=== PATIENT | male | born 1955 | race Caucasian/White ===

== ENCOUNTER 2016-09-06 23:51 | Emergency (ER) | payer BC, OTHER ==
[~2016-09-06] VITALS: Ht 188 cm; Wt 95.3 kg
[2016-09-07] MEDS ORDERED: fentaNYL INJECTION 100 MCG/2 ML AMP IVP STA ×3 (00:15→01:52)
[2016-09-07] MEDS ORDERED: LACTATED RINGERS 1,000 ML IV ONE (00:15)
[2016-09-07] MEDS ORDERED: ONDANSETRON 4 MG/2 ML (SDV) Z0FRAN IVP ONE (00:15)
--- NOTE | 2016-09-07 00:21 | ED Abdominal Pain ---
General Chief Complaint: Abdominal/GI Problems Stated Complaint: ABD PAIN,SUZANNE CA METS TO LIVER Source of Information: Patient, Spouse History of Present Illness Time Seen By Provider: 00:05 Initial Comments PT ARRIVES VIA POV FROM HOME C/O SEVERE GENERALIZED ABDOMINAL PAIN SINCE 2029 TONIGHT--PAIN BEGAN 10 MINUTES AFTER EATING SAUSAGE AND SAUERKRAUT PAIN BEGAN IN UPPER ABDOMEN AND NOW IS ALL OVER C/O NAUSEA AND VOMITED X 1-HAS ONLY HAD A SIP OF WATER SINCE PAIN BEGAN HAS NOT PASSED ANY GAS SINCE PAIN BEGAN HAD NORMAL BM THIS AM NO URINARY SYMPTOMS NO FEVER NO HISTORY OF SIMILAR PT HAS METASTATIC COLON CANCER WITH LIVER METS. DX 01/2015 BEING TREATED WITH CHEMO-GOES TO [facility] AND DR. HAYES AT [facility] LAST CHEMO 07/19/16, NEXT TX DUE 09/08/16 NO ABDOMINAL SURGERY OF ANY KIND NO RADIATION NO PCP NO CARDIOLOGY ONCOLOGY: DR. HAYES, [facility]. ALSO GOES TO [facility] Allergies and Home Medications Allergies Coded Allergies: No Known Drug Allergies (Unverified , 09/07/16) Home Medications Furosemide 20 Mg Tablet, 20 MG PO, (Reported) Spironolactone 50 Mg Tablet, 50 MG PO, (Reported) Review of Systems Constitutional: no symptoms reported Respiratory: No Symptoms Reported Cardiovascular: No Symptoms Reported Gastrointestinal: See HPI, Abdominal Pain, Nausea, Poor Appetite, Poor Fluid Intake, Vomiting Genitourinary: No Symptoms Reported Musculoskeletal: no symptoms reported Skin: no symptoms reported Psychiatric/Neurological: No Symptoms Reported Endocrine: No Symptoms Reported Hematologic/Lymphatic: No Symptoms Reported Past Wydpfkh-Qgwihy-Bnkhww Hx Patient Social History Alcohol Use: Past History Recreational Drug Use: No Smoking Status: Never a Smoker Recent Foreign Travel: No Contact w/Someone Who Travel: No Surgeries HX Surgeries: Yes (PORT RIGHT CHEST; ENDOVASCULAR COIL IN LIVER RELATED TO CANCER TX--COIL EMBOLIZATION; COLONOSCOPIES; LEFT ARM FX/ORIF) Surgeries: Orthopedic Respiratory Hx Respiratory Disorders: No Cardiovascular Hx Cardiac Disorders: Yes (HAS CHRONIC ATRIAL FIBRILLATION--NOT TREATED, 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 ) Cardiac Disorders: Atrial Fibrillation Neurological Hx Neurological Disorders: No Genitourinary Hx Genitourinary Disorders: No Gastrointestinal Hx Gastrointestinal Disorders: Yes (COLON CANCER WITH LIVER METS) Musculoskeletal Hx Musculoskeletal Disorders: Yes (LEFT ARM FX/ ORIF) Musculoskeletal Disorders: Fractures Endocrine Hx Endocrine Disorders: No HEENT HX ENT Disorders: No Cancer Hx Cancer: Yes (COLON CANCER WITH LIVER METS DX 01/2015--TREATED WITH CHEMO ONLY. ) Cancer: Colon Psychosocial Hx Psychiatric Problems: No Integumentary HX Skin/Integumentary Disorder: No Blood Transfusions Hx Blood Disorders: No Physical Exam Vital Signs VS - Last 72 Hours, by Label 09/07/16 09/07/16 00:13 05:17 Temp 96.8 Pulse 129 102 Resp 16 16 B/P (MAP) 136/117 Pulse Ox 98 97 O2 Delivery Room Air Room Air Capillary Refill : General Appearance: WD/WN, other (MOANING. KEEPS EYES CLOSED) HEENT: PERRL/EOMI Neck: normal inspection Respiratory: normal breath sounds, no respiratory distress, no accessory muscle use Cardiovascular: no edema, no JVD, no murmur, tachycardia, irregularly irregular Gastrointestinal: abnormal bowel sounds (ABSENT), distended (SLIGHTLY), guarding, rebound, tenderness (SEVERE, DIFFUSE TENDERNESS), No hernia, other ( UNABLE TO DETERMINE IF ORGANOMEGALY IS PRESENT DUE TO PT DISCOMFORT ON PALPATION ) Extremities: normal inspection, no pedal edema, no calf tenderness, normal capillary refill Back: no CVA tenderness Neurologic/Psychiatric: imaging analyst II-XII nml as tested, no motor/sensory deficits, alert, oriented x 3 Skin: warm/dry, other (SALLOW) Progress/Results/Core Measures Results/Orders Lab Results Laboratory Tests Test 09/07/16 00:20 Range/Units White Blood Count 11.4 H 4.3-11.0 10^3/uL Red Blood Count 3.68 L 4.35-5.85 10^6/uL Hemoglobin 12.7 L 13.3-17.7 G/DL Hematocrit 36 L 40-54 % Mean Corpuscular Volume 97 80-99 FL Mean Corpuscular Hemoglobin 35 H 25-34 PG Mean Corpuscular Hemoglobin Concent 36 32-36 G/DL Red Cell Distribution Width 13.7 10.0-14.5 % Platelet Count 180 130-400 10^3/uL Mean Platelet Volume 10.4 7.4-10.4 FL Neutrophils (%) (Auto) 83 H 42-75 % Lymphocytes (%) (Auto) 6 L 12-44 % Monocytes (%) (Auto) 11 0-12 % Eosinophils (%) (Auto) 0 0-10 % Basophils (%) (Auto) 1 0-10 % Neutrophils # (Auto) 9.5 H 1.8-7.8 X 10^3 Lymphocytes # (Auto) 0.6 L 1.0-4.0 X 10^3 Monocytes # (Auto) 1.2 H 0.0-1.0 X 10^3 Eosinophils # (Auto) 0.0 0.0-0.3 10^3/uL Basophils # (Auto) 0.1 0.0-0.1 10^3/uL Sodium Level 135 135-145 MMOL/L Potassium Level 4.1 3.6-5.0 MMOL/L Chloride Level 101 98-107 MMOL/L Carbon Dioxide Level 21 21-32 MMOL/L Anion Gap 13 5-14 MMOL/L Blood Urea Nitrogen 12 7-18 MG/DL Creatinine 0.81 0.60-1.30 MG/DL Estimat Glomerular Filtration Rate > 60 BUN/Creatinine Ratio 15 Glucose Level 137 H 70-105 MG/DL Calcium Level 8.6 8.5-10.1 MG/DL Total Bilirubin 3.5 H 0.1-1.0 MG/DL Aspartate Amino Transf (AST/SGOT) 65 H 5-34 U/L Alanine Aminotransferase (ALT/SGPT) 39 0-55 U/L Alkaline Phosphatase 212 H 40-136 U/L Total Protein 6.9 6.4-8.2 GM/DL Albumin 2.5 L 3.2-4.5 GM/DL Amylase Level 49 25-125 U/L Lipase 36 8-78 U/L My Orders Orders - AGUSTINA MCMAHON DO Saline Lock/Iv-Start (09/07/16 00:06) Amylase (09/07/16 00:06) Cbc With Automated Diff (09/07/16 00:06) Comprehensive Metabolic Panel (09/07/16 00:06) Lipase (09/07/16 00:06) Acute Abd Series (09/07/16 00:06) Ondansetron Injection (Zofran Injectio (09/07/16 00:15) Fentanyl Injection (Sublimaze Injection (09/07/16 00:15) Saline Lock/Iv-Start (09/07/16 00:15) Lactated Ringers (Lr 1000 Ml Iv Solution (09/07/16 00:15) Fentanyl Injection (Sublimaze Injection (09/07/16 00:45) Ct Abdomen/Pelvis W (09/07/16 00:52) Iohexol Injection (Omnipaque 350 Mg/Ml 1 (09/07/16 01:00) Ns (Ivpb) (Sodium Chloride 0.9% Ivpb Bag (09/07/16 01:00) Ct Chest Wo (09/07/16 01:51) Fentanyl Injection (Sublimaze Injection (09/07/16 01:52) Medications Given in ED Vital Signs/I&O Vital Sign - Last 12Hours 09/07/16 09/07/16 00:13 05:17 Temp 96.8 Pulse 129 102 Resp 16 16 B/P (MAP) 136/117 Pulse Ox 98 97 O2 Delivery Room Air Room Air Progress Note : Progress Note SYMPTOMS IMPROVED WITH MEDICATIONS NO DETERIORATION IN PT'S CONDITION DURING ER STAY Diagnostic Imaging Comments CT CHEST--MODERATE LEFT AND SMALL RIGHT PLEURAL EFFUSIONS, MULTIPLE MEDIASTINAL LYMPH NODES, DIFFUSE SUB Q EDEMA, OTHER NON-ACUTE FINDINGS CT ABDOMEN/PELVIS--ENLARGED RETROCECAL APPENDIX AT 8.2 MM WITH TINY APPENDICOLITH, AND THICKENED WALL. CANNOT EXCLUDE APPENDICITIS, LIMITED EXAM DUE TO ASCITES. NO FREE AIR, BOWEL OBSTRUCTION, HYDROURETER/NEPHROSIS OR BILIARY DUCTAL DILATATION. BILATERAL PLEURAL EFFUSIONS, MULTIFOCAL HEPATIC LESIONS C/W COLON CANCER METASTASIS BUT CANNOT R/O COEXISTENT HEPATOCELLULAR CARCINOMA. OTHER NON-ACUTE FINDINGS --PER [facility] VIA FAX @ [phone] Reviewed: Reviewed by Me Departure Communication Progress Notes OFFERED TO ADMIT PT HERE, BUT WANTS TO GO TO [place], THIS IS WHERE HIS ONCOLOGIST IS [phone]--CALLED [facility] ONE CALL. [phone]--SPOKE WITH DR. POPE, SURGEON VAT WASHER. STATES HE CANNOT ACCEPT THE PT HE IS CURRENTLY TAKING CARE OF A TRAUMA PT AND ADVISES TO TRANSFER TO [place]. PT IS AGREEABLE TO THIS. [phone]--CALLED [facility] DIRECT CALL. LEFT MESSAGE ON MACHINE [phone]--[facility] CALL CALLED BACK. PAGING SURGEON VAT WASHER [phone]--SPOKE WITH DR. SKELTON, ACCEPTS PT FOR ADMIT Impression Impression: Primary Impression: Metastatic colon cancer to liver Additional Impressions: Ascites POSSIBLE APPENDICITIS Malignant pleural effusion CHRONIC ATRIAL FIBRILLATION, UNTREATED Disposition: XFER SHT-TRM HOSP Condition: Improved Departure-Patient Inst. Referrals: NO,LOCAL PHYSICIAN (PCP) Primary Care Physician AGUSTINA MCMAHON DO Sep 07, 2016 00:21
[2016-09-07 00:30] LABS: BASOPHILS # (AUTO) 0.1 10^3/uL (0.0-0.1); BASOPHILS % (AUTO) 1 % (0-10); EOSINOPHILS % (AUTO) 0 % (0-10); LYMPHOCYTES # (AUTO) 0.6 X 10^3 (1.0-4.0); LYMPHOCYTES % (AUTO) 6 % (12-44); MEAN CORPUSCULAR HEMOGLOBIN 35 PG (25-34); MEAN CORPUSCULAR HGB CONC 36 G/DL (32-36); MEAN CORPUSCULAR VOLUME 97 FL (80-99); MEAN PLATELET VOLUME 10.4 FL (7.4-10.4); MONOCYTES # (AUTO) 1.2 X 10^3 (0.0-1.0); MONOCYTES % (AUTO) 11 % (0-12); NEUTROPHILS # (AUTO) 9.5 X 10^3 (1.8-7.8); NEUTROPHILS % (AUTO) 83 % (42-75); PLATELET COUNT 180 10^3/uL (130-400); RED BLOOD COUNT 3.68 10^6/uL (4.35-5.85); RED CELL DISTRIBUTION WIDTH 13.7 % (10.0-14.5); WHITE BLOOD COUNT 11.4 10^3/uL (4.3-11.0)
[2016-09-07 00:49] LABS: ALANINE AMINOTRANSFERASE 39 U/L (0-55); ALBUMIN 2.5 GM/DL (3.2-4.5); AMYLASE 49 U/L (25-125); ANION GAP 13 MMOL/L (5-14); ASPARTATE AMINO TRANSFERASE 65 U/L (5-34); BILIRUBIN,TOTAL 3.5 MG/DL (0.1-1.0); BLOOD UREA NITROGEN 12 MG/DL (7-18); BUN/CREATININE RATIO 15; CALCIUM 8.6 MG/DL (8.5-10.1); CARBON DIOXIDE 21 MMOL/L (21-32); CHLORIDE 101 MMOL/L (98-107); CREATININE SERUM 0.81 MG/DL (0.60-1.30); GFR ESTIMATED > 60; GLUCOSE 137 MG/DL (70-105); LIPASE 36 U/L (8-78); POTASSIUM 4.1 MMOL/L (3.6-5.0); SODIUM 135 MMOL/L (135-145); TOTAL PROTEIN 6.9 GM/DL (6.4-8.2)
[2016-09-07] MEDS ORDERED: IOHEXOL 350 MG/ML 100 ML (OMNIPAQUE 350) VIAL IV ONE (01:00)
[2016-09-07] MEDS ORDERED: NS 100 ML (IVPB) BAG IV ONE (01:00)
[2016-09-07] MEDS ORDERED: FURO-125 PO (04:18)
[2016-09-07] MEDS ORDERED: SPIR50TA2 PO (04:18)
[2016-09-07 05:17] VITALS: BP 131/100
--- NOTE | 2016-09-07 08:30 | Diagnostic Imaging Report ---
PROCEDURE: CT chest without contrast. TECHNIQUE: Multiple contiguous axial images were obtained through the chest without the use of intravenous contrast. INDICATION: Abdominal pain starting 3 hours earlier. History of colon cancer with metastatic disease. Nausea and vomiting. CORRELATION STUDY: None FINDINGS: Evaluation limited given lack of contrast. There is presence of a moderate left and small right pleural effusion. Associated areas of atelectasis noted more likely than consolidation. Heart size unremarkable. Trace pericardial effusion. There are multiple calcified and noncalcified mediastinal as well as hilar lymph nodes present. Thoracic aortic contour does demonstrate slight ectasia of the ascending aorta at 4.6 cm. A right-sided central line is present tip in the cavoatrial junction. Diffuse subcutaneous edema present. Increased density in the retroareolar regions compatible with gynecomastia. IMPRESSION: 1. Nonspecific sclerotic lesions are noted in the proximal humerus bilaterally may reflect bone islands. Moderate left and small right pleural effusion with bibasilar atelectasis more likely than consolidation. However, pneumonia is not excluded. 2. Multiple small calcified and noncalcified mediastinal as well as hilar lymph nodes. Nonspecific. 3. Diffuse subcutaneous edema present. A preliminary report was provided by [facility]. Dictated by: Dictated on workstation # [id number]
--- NOTE | 2016-09-07 08:40 | Diagnostic Imaging Report ---
INDICATION: Abdominal pain starting 3 hours prior. Nausea and vomiting. History of colon cancer with metastatic disease to the liver. TECHNIQUE: Single view chest with supine and upright radiographs of the abdomen. CORRELATION STUDY: None FINDINGS: Imaging of the chest demonstrate right IJ [id number] catheter to be present. There is a small right and moderate left pleural effusion likely associated with atelectasis lung bases. Heart size borderline. Vasculature within normal limits. Apparent embolization coils in the upper abdomen likely at the region of the gastroduodenal artery. There are a few gas filled loops of bowel present with air-fluid levels. May reflect mild ileus pattern. High degree obstruction does not appear to be present. Gas and stool within the colon to level of rectum suggested. Increased density of the abdomen could be reflective of underlying ascites. IMPRESSION: 1. Bilateral pleural effusions left greater than right with likely associated atelectasis of the lung bases. 2. Scattered gas filled loops of bowel are present may be reflective of underlying ileus pattern. No evidence for high degree obstruction. Underlying ascites not excluded. Dictated by: Dictated on workstation # [id number]
--- NOTE | 2016-09-07 08:51 | Diagnostic Imaging Report ---
PROCEDURE: CT abdomen and pelvis with contrast. TECHNIQUE: Multiple contiguous axial images were obtained through the abdomen and pelvis after administration of intravenous contrast. INDICATION: Abdominal pain starting 3 hours prior. Nausea and vomiting. History of colon cancer with metastatic disease. CORRELATION STUDY: None FINDINGS: There is presence of a moderate left and smaller right pleural effusion likely associated with bibasilar atelectasis versus perhaps consolidation. Increased density in the retroareolar region compatible with gynecomastia. Embolization coils in the right upper quadrant. Liver is small, heterogeneous and nodular. There are multifocal hypoenhancing hepatic lesions which is nonspecific but given history are concerning for neoplasm either perhaps primary hepatocellular given cirrhosis versus metastatic disease given the colon malignancy. Gallbladder absent with clips in the fossa. Spleen, pancreas and adrenal glands are unremarkable. Abdominal aorta normal in contour. Kidneys with relatively normal enhancement. Splenic vein with normal appearance. There is presence of a fairly significant amount of abdominal and pelvic ascites. The fluid does limit assessment of the gastrointestinal tract. Possibility of wall thickening not excluded. In the setting of portal hypertension bowel wall thickening may reflect edema with enterocolitis not excluded. A retrocecal appendix measures 8 mm with tiny appendicolith and thickened wall. Additional prominence of the appendix may be owing to the edema of the gastrointestinal tract. Uncomplicated appendicitis should be considered somewhat less likely but difficult to exclude by CT findings. No significant free air. No findings to suggest high degree bowel obstruction. Urinary bladder unremarkable. Prostate gland unremarkable. Large amount of fluid extends through the right inguinal canal into the scrotum. IMPRESSION: 1. Moderate left and small right pleural effusion. 2. Findings are consistent with cirrhosis. Multiple hepatic lesions are present worrisome for neoplasm perhaps primary hepatocellular versus metastatic. 3. Sizable amount of abdominal and pelvic ascites with some fluid extending into the right aspect of the scrotum. 4. There is some wall thickening present including of the appendix. This may be reflective of a edema from the portal hypertension and ascites. Enterocolitis and/or perhaps appendicitis while considered less likely would be difficult to exclude by CT findings. Clinical correlation recommended. A preliminary report was provided by [facility]. Dictated by: Dictated on workstation # [id number]
--- OUTSIDE RECORDS SUMMARY | 2016-09-08 15:34 | XMS REPORT | Continuity of Care Document ---
Author Author [facility] Organization [facility] Address Unknown Phone Unavailable Care Team Providers Care Traffic Control Flagger Name Role Phone No Pcp, Na PCP Unavailable Source Comments Some departments are not documenting in the electronic medical record. If you do not see the information that you expected, contact Release of Information in the Health Information Management department at [phone] for further assistance in locating additional records.[facility] Active Allergies and Adverse Reactions No Known Allergies Current Medications No known medications Active Problems Not on file Social History Tobacco Use Types Packs/Day Years Used Date Never Smoker Alcohol Use Drinks/Week oz/Week Comments No Last Filed Vital Signs Vital Sign Reading Time Taken Blood Pressure 128/98 09/04/2015 12:30 PM CDT Pulse 100 09/04/2015 12:30 PM CDT Temperature 36.8 C (98.2 F) 09/04/2015 8:31 AM CDT Respiratory Rate - - Height - - Weight - - Body Mass Index - - Oxygen Saturation 99% 09/04/2015 12:30 PM CDT Plan of Care Health Maintenance Due Date Last Done Comments Hepatitis C Screening 1955 Physical (Comprehensive) 1961 Exam Pertussis Vaccine 1965 Tetanus Vaccine 07/23/1971 Colorectal Cancer 2004 Screening Shingles Vaccine 2014 Influenza Vaccine 11/05/2016 Results from Last 3 Months Not on file
== END 2016-09-07 05:22 | disposition short-term general hospital (02) ==
LOC: ER 23:54
DX: C18.9 Malignant neoplasm of colon, unspecified (principal); C78.7 Secondary malignant neoplasm of liver and intrahepatic bile duct; J91.0 Malignant pleural effusion; R18.8 Other ascites; I48.2 Chronic atrial fibrillation; Z87.39 Personal history of other diseases of the musculoskeletal system and connective tissue
CPT/HCPCS: 36415; 71250; 74022; 74177; 80053; 82150; 83690; 85025; 96361; 96374; 96375; 96376